=== PATIENT | female | born 1955 | race Caucasian/White ===

== ENCOUNTER 2020-12-30 20:49 | Inpatient (IN) | payer MEDICARE, OTHER, SELFPAY ==
[2020-12-30] VITALS (17 sets, daily range): BP systolic 148–169; BP diastolic 64–111; PULSE 112–131; RESP 22–35; TEMP 36.7; O2SAT 97–100
--- NOTE | ~2020-12-30 | CT_ITS ---
EXAMINATION: CTA chest PE protocol EXAM DATE: 12/30/2020 22:55 INDICATION: Shortness of breath, elevated dimer. TECHNIQUE: Spiral CTA of the chest (pulmonary arteries) was performed with 100 cc Omnipaque 350 intr avenous contrast injection. Images were acquired during the pulmonary arterial phase. Coronal maxi mum intensity projection 3D-reconstructions were created by the technologist on dedicated workstation . Axial, coronal and sagittal reformatted images were reviewed. The dose-length product (DLP) for t his examination was 596.99 mGy-cm. The exposure was tailored according to patient size (auto mA exp osure control), and iterative reconstruction (ASIR) was used as additional dose reduction technique. There is no prior study for comparison. FINDINGS: There are no pulmonary emboli in the 1st through 3rd order (central and interlobar) pulmon angel arteries. There is loss of attenuation in the segmental pulmonary arteries due to respiratory mot ion and suboptimal opacification, these vessels are not well evaluated. No thoracic aortic dissecti on. There are patchy bilateral groundglass opacities, could be infection or edema. Heart is normal i n size. There is small pericardial effusion. Small to moderate right and small left pleural effusions . Tracheobronchial tree is patent. There is no mediastinal, hilar or axillary lymphadenopathy. There is no pneumothorax. Cholecystectomy clips. There is thoracic spondylosis without osteobla stic or osteolytic lesions identified. Dense mitral annular calcifications. IMPRESSION: 1. No central pulmonary emboli. Can't confidently evaluate segmental pulmonary arteries. 2. Small to moderate right pleural effusion. Small pericardial and left pleural effusions. 3. Moderate amount of bilateral patchy infection or edema. Reviewed, dictated and finalized at location G. DOWN SPECIALIST IMPRESSION: 1. No central pulmonary emboli. Can't confidently evaluate segmental pulmonary arteries. 2. Small to moderate right pleural effusion. Small pericardial and left pleura l effusions. 3. Moderate amount of bilateral patchy infection or edema.
--- NOTE | ~2020-12-30 | XR_ITS ---
EXAMINATION: XR chest 1V portable EXAM DATE: 12/30/2020 21:17 INDICATION: Shortness of breath. Anxiety. TECHNIQUE: Portable AP frontal chest x-ray was obtained. Comparison is made to prior examination from 09/07/2018. FINDINGS: There is moderate amount of bilateral ill-defined airspace disease, recommend considering C OVID 19 pneumonia. Edema also possible. No pneumothorax or pleural effusion. Cardiomediastinal silhou ette is normal. Left humeral hardware. IMPRESSION: Moderate amount of bilateral ill-defined acute airspace disease, possibly COVID pneumoni a. Reviewed, dictated and finalized at location G. NCIAL SYSTEMS MANAGER IMPRESSION: Moderate amount of bilateral ill-defined acute airspace disease, p ossibly COVID pneumonia.
--- NOTE | ~2020-12-30 | US_ITS ---
EXAMINATION: US venous doppler E DATE: 12/31/2020 15:18 INDICATION: Left upper limb swelling TECHNIQUE: Grayscale images without and with compression and Doppler images of the bilateral upper ex tremity veins were obtained. COMPARISON: None. FINDINGS: The right internal jugular vein, subclavian vein, axillary vein, brachial vein, basilic vein, cephali c vein, radial vein, and ulnar vein are patent. The left internal jugular vein, subclavian vein, axillary vein, brachial vein, basilic vein, cephalic vein, radial vein, and ulnar vein are patent. IMPRESSION: 1. Patent bilateral upper extremity veins. No evidence of venous thrombosis. Reviewed, dictated and finalized at location A. 'S GOLF COACH
--- NOTE | 2020-12-30 20:58 | ECG_ITS ---
Measurements Intervals [place] Rate: 116 P: 70 W[place]: 135 QRS: 47 QRSD: 102 T: 43 QT: 321 QTc: 448 Interpretive Statements SINUS TACHYCARDIA POSSIBLE LEFT ATRIAL ENLARGEMENT INCOMPLETE RIGHT BUNDLE BRANCH BLOCK LOW QRS VOLTAGE IN PRECORDIAL LEADS BASELINE ARTIFACT- I, II, III, AVR, AVL, AVF, V1-V3 ABNORMAL ECG Electronically Signed On 12-31-2020 8:20:34 GRINDER SET UP OPERATOR by Ernesto Montgomery D.O.
--- NOTE | 2020-12-30 21:05 | PC.NURSE ---
Note pt's left hand/forearm more swollen than her right. Pt states she doesn't know how long this has been going on, but is concerned that she may have a blood clot or something . Pt has strong right radial pulse. Hand is normal in color and temperature.
[2020-12-30 21:12] LABS: Fractional Inspired Oxygen 100 %; HCO3 VBG 17.3 mEq/l (24.0-30.0); PO2 VBG 76.1 mmHg (35.0-45.0); pH VBG 7.379 (7.300-7.400)
[2020-12-30 21:14] LABS: Device NON-REBREATHER MASK; PCO2 VBG 29.9 mmHg (42.0-48.0)
[2020-12-30 21:18] LABS: Basophils Absolute Auto 0.1 K/mm3 (0.0-0.1); Basophils Percent Auto 0.7 % (0.2-1.2); Eosinophils Percent Auto 0.2 % (0-4.4); Hematocrit 27.8 % (37.0-47.0); Immature Granulocyte Absolute 0.07 K/mm3 (0.00-0.031); Immature Granulocyte Percent A 0.7 % (0-0.5); Lymphocytes Absolute Auto 1.24 K/mm3 (0.9-3.2); Lymphocytes Percent Auto 11.5 % (18.3-44.2); Mean Corpuscular HGB Conc 28.8 g/dl (32-36); Mean Corpuscular Hemoglobin 23.1 pg (26-34); Mean Corpuscular Volume 80.3 fl (80-100); Mean Platelet Volume 10.2 fl (7.4-10.4); Monocytes Absolute Auto 0.3 K/mm3 (0.1-0.6); Monocytes Percent Auto 3.1 % (2.6-8.5); Neutrophils Percent Auto 83.8 % (45.5-73.1); Platelet Count Result 421 k/mm3 (150-375); Red Blood Count 3.46 M/mm3 (4.2-5.4); Red Cell Distribution Width 20.5 % (11.5-14.5); White Blood Count 10.7 K/mm3 (4.5-10.0)
[2020-12-30 21:26] LABS: Hypochromasia 1+ (NORMAL); Platelet Estimate Increased (Adequate)
[2020-12-30 21:30] LABS: D Dimer 1.27 ug/mL (<0.48)
[2020-12-30 21:40] LABS: Anion Gap 10 mmol/L (8-16); Blood Urea Nitrogen 20 mg/dL (7-17); Calcium 9.5 mg/dL (8.4-10.2); Carbon Dioxide 19 mmol/L (22-30); Chloride 105 mmol/L (98-107); Estimated Glomerular Filt Rate 50; Glucose 125 mg/dL (65-105); Potassium 5.4 mmol/L (3.4-5.0); Sodium 134 mmol/L (137-145)
--- NOTE | 2020-12-30 21:40 | ED.SOB ---
HPI - SOB/Dyspnea General Chief Complaint: Shortness of Breath/Dyspnea Stated Complaint: respiratory distress Time Seen by Provider: 12/30/20 20:58 Source: patient and EMS Mode of arrival: EMS Limitations: clinical condition History of Present Illness HPI Narrative: 65-year-old female Arrives by BLS ambulance complaining of shortness of breath She is very anxious and not very cooperative on arrival Her O2 saturation on supplemental oxygen is fine, 98 to 100% though EMS reported 85% RA prehospital She is actually able to speak in complete sentences and explained that she does not want to wear BiPAP or be intubated Related Data Home Medications Medication Instructions Recorded Confirmed Spiriva Respimat 12/30/20 albuterol sulfate 12/30/20 cefuroxime axetil 12/30/20 diltiazem HCl PO 12/30/20 doxycycline hyclate 12/30/20 fluticasone furoate-vilanterol INHALATION 12/30/20 [Breo Ellipta] furosemide 12/30/20 gabapentin 12/30/20 hydralazine 12/30/20 levetiracetam PO 12/30/20 lorazepam 12/30/20 metoprolol tartrate 12/30/20 montelukast mg 12/30/20 pantoprazole PO 12/30/20 12/30/20 potassium chloride meq PO 12/30/20 prednisone 12/30/20 rosuvastatin mg 12/30/20 venlafaxine mg PO 12/30/20 warfarin 12/30/20 warfarin 12/30/20 12/30/20 Allergies Allergy/AdvReac Type Severity Reaction Status Date / Time No Known Allergies Allergy Verified 12/30/20 21:09 Review of Systems Review of Systems: ROS unobtainable: Yes unobtainable due to medical condition (too SOB) Constitutional: Constitutional: Denies fever(s) Cardiovascular: Cardiovascular: Reports as per HPI Respiratory: Respiratory: Reports as per HPI [facility] Past Medical History Medical History (Updated 12/30/20 @ 23:36 by Alfredo Corona MD) Breast cancer Surgical History Surgical History (Updated 12/30/20 @ 23:13 by Alfredo Corona MD) History of mastectomy Social History Social History Gender identity (if verbalized by the patient): Female Exam Const: General: well developed, alert and awake Nutritional Appearance: obese Orientation/consciousness: patient oriented x3 (alert) HENMT: Head: normocephalic and atraumatic Ears: external ears normal General nose exam: No nasal discharge present and no epistaxis Face and sinus: face symmetric Mouth: Yes moist mucous membranes Eyes: Conjunctivae: conjunctivae normal Sclera: sclerae normal EOM: EOMs intact bilaterally Neck: Neck: normal visual inspection, supple and no JVD Chest: Chest palpation & inspection: other (p/ mastectomy) Resp: Effort & Inspection: tachypneic Auscultation: no rales, no rhonchi, wheezes and other (BS =) Cardio: Rate: regular rate and tachycardic Rhythm: regular rhythm Heart sounds: no gallops GI: Inspection: normal to inspection Back/Spine/Pelvis: Thoracic/Lumbar Spine: thoracic and lumbar spine normal to inspection Skin: General skin exam: normal color and no rashes or lesions noted Neuro: General: patient oriented x3 (alert) and moves all extremities Cranial nerves: Yes facial symmetry Speech: normal speech Extrem: General: normal to inspection, full ROM and edema Psych: Affect: Anxious affect present and Irritable affect present Course Course Emergency Course: improved after initial neb and able to wean to nc o2 lab/cxr c/w possible kurt needed a little versed to tolerate ct, no pe, infiltrates present, again possibly kurt able to get most of her meds, does include coumadin 6/d, inr ok, lovenox held Vital Signs Vital signs: Vital Signs Pulse Rate 120 H 12/30/20 21:02 Respiratory Rate 34 H 12/30/20 21:02 Temperature 36.7 C 12/30/20 21:05 Pulse Rate 117 H 12/30/20 23:09 Respiratory Rate 25 H 12/30/20 23:09 Blood Pressure 148/82 H 12/30/20 23:09 Pulse Oximetry 100 12/30/20 23:09 MDM - SOB/Dyspnea Lab Data Result diagrams: 12/30/20 21:11 12/30/20 21:11
[2020-12-30 21:42] LABS: NT Pro B Type Natriuretic Pept 1490 PG/ML (5-100); Troponin I < 0.012 ng/mL (0.000-0.034)
--- NOTE | 2020-12-30 21:45 | PC.NURSE ---
Pt assisted to bedside commode. Note pt is incontent of stool.
--- NOTE | 2020-12-30 22:00 | PC.NURSE ---
Note pt has audible wheezes again after using commode. Pt helped with cleansing self of stool and assisted back to bed. spo2 99-100% on 6L/NC. Dr. Corona made aware of patient becoming more short of breath with exertion.
[2020-12-30] MEDS: IPRATROPIUM BR 0.02% INH SOLN 0.5 MG/2.5 ML VIAL INHALATION (22:22)
[2020-12-30] MEDS: ALBUTEROL SULFATE NEB 2.5 MG/0.5 ML INH 5 MG INHALATION (22:22)
--- NOTE | 2020-12-30 22:36 | PC.NURSE ---
Pt to CT via stretcher.
[2020-12-30] MEDS: MIDAZOLAM HCL (*CRX) 2 MG/2 ML VIAL 1 MG IV PUSH (22:50)
--- NOTE | 2020-12-30 22:55 | PC.NURSE ---
Pt given versed IVP for being too claustrophobic to lie flat for CT.
--- NOTE | 2020-12-30 23:12 | PC.NURSE ---
Covid swab obtained. Explaining lovonox, pt states that she takes warfarin 6mg daily for preventative since having cancer. States is to have INR checked tomorrow. Dr. Coorna aware, holding medication at this time.
[2020-12-30 23:23] LABS: Prothrombin Time 23.2 Seconds (11.1-14.7)
[2020-12-31] VITALS (33 sets, daily range): BP systolic 100–145; BP diastolic 52–88; PULSE 100–127; RESP 19–33; TEMP 35.8–37.3; O2SAT 99–100; BMI 42.0
--- NOTE | 2020-12-31 00:05 | PC.NURSE ---
Pt states now that she's coughing a little now , note that the patient has a tight sounding cough. States I just don't feel that much better . Note sp02 100%. Pt currently on 3L/NC. States I just don't feel like I'm getting a deep breath .
--- NOTE | 2020-12-31 00:42 | PC.NURSE ---
Pt given ice chips po. Updated on delay in receiving room as Dr. Zaragoza has refused to accept the patient. Awaiting return call from Dr. Silva.
--- NOTE | 2020-12-31 01:25 | ADMGEN ---
This patient, Haritha Velez, was admitted to [facility] Surg Room 314-01. Patient/family oriented to hospital policies and general routines including ID bracelet, bed and alarms, visiting hours, pain management, procedures, bathroom and other care routines, personal items, smoking policy, room service/diet, and visiting hours. Information on how to activate the Rapid Response Team has been discussed. Patient/Family are encouraged to report perceived risks to care and to ask questions if they do not understand what they are told or what they should do.
[2020-12-31 02:59] LABS: Anion Gap 7 mmol/L (8-16); Blood Urea Nitrogen 21 mg/dL (7-17); Calcium 9.5 mg/dL (8.4-10.2); Carbon Dioxide 21 mmol/L (22-30); Chloride 106 mmol/L (98-107); Estimated Glomerular Filt Rate 50; Glucose 150 mg/dL (65-105); Potassium 6.2 mmol/L (3.4-5.0); Sodium 134 mmol/L (137-145)
[2020-12-31] MEDS: ALBUTEROL SULFATE NEB 2.5 MG/0.5 ML INH 10 MG INHALATION (03:31)
[2020-12-31] MEDS: CALCIUM GLUC 1,000 MG/NS 50 ML 1,000 MG/50 ML BAG 100 MG IVPB (04:10)
[2020-12-31] MEDS: SODIUM BICARBONATE 8.4% 50 MEQ/50 ML VIAL IV PUSH (04:12)
[2020-12-31] MEDS: INSULIN HUMAN REGULAR (*BKC) 100 UNITS/ML 10 UNITS IV PUSH (05:06)
[2020-12-31] MEDS: DEXTROSE 50% 25 GM/50 ML SYRINGE IV PUSH (05:06)
--- NOTE | 2020-12-31 05:14 | PC.NURSE ---
This patient, Haritha Velez, was received from [[id number] ] on 12/31/20 at 0445. Patient/family oriented to unit policies and routines
--- NOTE | 2020-12-31 05:16 | PC.NURSE ---
This patient, Haritha Velez, was transferred to [[facility]U ] on 12/31/20 at 0450. Personal belongings sent with patient. Report given to [Norma]. Appropriate documentation sent with patient.
[2020-12-31] MEDS: ALBUTEROL SULFATE NEB 2.5 MG/0.5 ML INH 5 MG INHALATION (05:49)
[2020-12-31] MEDS: LORazepam INJ (*CRX) 2 MG/ML VIAL 0.5 MG IV PUSH (06:01)
[2020-12-31 06:43] LABS: Anion Gap 10 mmol/L (8-16); Blood Urea Nitrogen 22 mg/dL (7-17); Calcium 9.8 mg/dL (8.4-10.2); Carbon Dioxide 22 mmol/L (22-30); Chloride 106 mmol/L (98-107); Estimated Glomerular Filt Rate 50; Glucose 154 mg/dL (65-105); Potassium 4.9 mmol/L (3.4-5.0); Sodium 138 mmol/L (137-145)
--- NOTE | 2020-12-31 08:21 | PM.IMHP ---
H&P: HPI History of Present Illness Date/Time: 12/31/20 08:21 Chief Complaint: SOB. Narrative: Haritha Velez is a 65 year old female with PMHx significant for HTN, COPD, Asthma, A. fib on anticoagulation, T2DM. Patient presented to ED due to worsening sob, productive cough, for the last week or so, denies smoking, also states that had pain in her epigastrium but no nausea or vomiting, no fevers, no rigors, no chills, no loss of sense of smell or taste, no loss of appetite, no leg swelling. Preliminary work up was significant for lung infiltrates on both lungs. Review of Systems Review of Systems: Narrative: Patient presented to ED due to worsening sob and epigastric abdominal pain. Constitutional: Comments: no fevers, no rigors, no chills. ENT: Comments: no nasal congestion. Cardiovascular: Comments: no chest pain, no leg swelling. Respiratory: Comments: sob, productive cough. Gastrointestinal: Comments: epigastric discomfort, no n/v Musculoskeletal: Comments: no joint pain. Integumentary/Breasts: Comments: no rashes. Neurologic: Comments: no sensory motor deficit. [facility] Past Medical History Medical History (Updated 12/31/20 @ 12:44 by An Gray MD) Breast cancer Surgical History Surgical History (Updated 12/30/20 @ 23:13 by Alfredo Corona MD) History of mastectomy Social History Social History Smoking status: Never smoker Alcohol intake: never Substance use: never Gender identity (if verbalized by the patient): Female Spiritual care concerns: No Meds Home Medications and Allergies Home Medications Medication Instructions Recorded Confirmed Type albuterol sulfate 2 puff INHALATION TID 12/30/20 12/31/20 History diltiazem HCl 240 mg PO DAILY 12/30/20 12/31/20 History fluticasone furoate-vilanterol 2 inh INHALATION DAILY 12/30/20 12/31/20 History [Breo Ellipta] furosemide 80 mg PO DAILY 12/30/20 12/31/20 History gabapentin 600 mg PO TID 12/30/20 12/31/20 History hydralazine 25 mg PO BID 12/30/20 12/31/20 History levetiracetam 250 mg PO BID 12/30/20 12/31/20 History lorazepam 0.5 mg PO Q6H PRN 12/30/20 12/31/20 History metoprolol tartrate 12.5 mg PO BID 12/30/20 12/31/20 History montelukast 10 mg PO HS 12/30/20 12/31/20 History pantoprazole 40 mg PO BIDAC 12/30/20 12/31/20 History potassium chloride 40 meq PO BID 12/30/20 12/31/20 History rosuvastatin 5 mg PO HS 12/30/20 12/31/20 History venlafaxine 150 mg PO DAILY 12/30/20 12/31/20 History warfarin 7.5 mg PO DAILY 12/30/20 12/31/20 History Allergies Allergy/AdvReac Type Severity Reaction Status Date / Time No Known Allergies Allergy Verified 12/30/20 21:09 Vital Signs Vital Signs - 24 hr 12/30/20 21:02 12/30/20 21:05 12/30/20 21:13 Temperature 98.1 F Pulse Rate 120 H 125 H 117 H Respiratory Rate 34 H 33 H 30 H Blood Pressure 169/111 H Pulse Oximetry 100 12/30/20 21:17 12/30/20 21:25 12/30/20 21:27 Temperature Pulse Rate 114 H 124 H Respiratory Rate 24 H Blood Pressure 162/74 H Pulse Oximetry 100 97 12/30/20 21:55 12/30/20 22:11 12/30/20 22:15 Temperature Pulse Rate 114 H 115 H 113 H Respiratory Rate 25 H 30 H 35 H Blood Pressure 150/64 H Pulse Oximetry 100 100 100 12/30/20 22:17 12/30/20 22:22 12/30/20 22:31 Temperature Pulse Rate 112 H 112 H 118 H Respiratory Rate 22 H 26 H 29 H Blood Pressure 156/70 H Pulse Oximetry 100 12/30/20 22:58 12/30/20 23:00 12/30/20 23:09 Temperature Pulse Rate 131 H 119 H 117 H Respiratory Rate 31 H 32 H 25 H Blood Pressure 148/82 H Pulse Oximetry 99 100 12/30/20 23:32 12/30/20 23:48 12/31/20 00:00 Temperature Pulse Rate 117 H 115 H 116 H Respiratory Rate 28 H 27 H 30 H Blood Pressure 163/67 H Pulse Oximetry 100 100 100 12/31/20 00:02 12/31/20 00:03 12/31/20 00:41 Temperature Pulse Rate 116 H 115 H 112 H Respiratory Rate 19 33 H 26 H Blood Pressure 137/88 Pulse Oximetry 100 100 100 0
[2020-12-31] MEDS: LEVALBUTEROL HFA (*SP) 15 GM INHALER 2 PUFF INHALATION ×2 (09:07→12:54)
[2020-12-31] MEDS: GABAPENTIN 300 MG CAPSULE 600 MG PO ×3 (09:29→16:36)
[2020-12-31] MEDS: PANTOPRAZOLE 40 MG TABLET PO ×2 (09:30→16:38)
[2020-12-31] MEDS: METOPROLOL TARTRATE 12.5 MG TABLET PO ×2 (09:30→20:19)
[2020-12-31] MEDS: hydrALAZINE HCL 25 MG TABLET PO ×2 (09:30→16:36)
[2020-12-31] MEDS: levETIRAcetam 250 MG TABLET PO ×2 (09:31→16:38)
[2020-12-31] MEDS: VENLAFAXINE HCL XR 75 MG CAP.ER.24H 150 MG PO (09:31)
[2020-12-31] MEDS: DEXAMETHASONE SOD PHOS INJ 4 MG/ML VIAL 6 MG IV PUSH (09:32)
[2020-12-31] MEDS: LEVALBUTEROL NEB 1.25 MG/3 ML 0.63 MG INHALATION ×2 (13:48→20:04)
[2020-12-31 13:56] LABS: SARS-CoV-2 RNA PCR Negative
--- NOTE | 2020-12-31 15:48 | PC.NURSE ---
This patient, Haritha Velez, was transferred to [[facility] ] on 12/31/20 at 1540. Personal belongings sent with patient. Report given to [Coreen ]. Appropriate documentation sent with patient.
--- NOTE | 2020-12-31 16:12 | ADMGEN ---
This patient, Haritha Velez, was admitted to [facility]. Patient/family oriented to hospital policies and general routines including ID bracelet, bed and alarms, visiting hours, pain management, procedures, bathroom and other care routines, personal items, smoking policy, room service/diet, and visiting hours. Information on how to activate the Rapid Response Team has been discussed. Patient/Family are encouraged to report perceived risks to care and to ask questions if they do not understand what they are told or what they should do.
[2020-12-31] MEDS: WARFARIN (*PBKC) 7.5 MG TABLET PO (16:37)
[2020-12-31] MEDS: LORazepam (*CRX) 0.5 MG TABLET PO ×2 (16:46→23:14)
[2020-12-31] MEDS: MONTELUKAST SODIUM 10 MG TABLET PO (20:19)
[2020-12-31] MEDS: racEPINEPHrine 2.25% NEBU SOLN 0.5 ML VIAL.NEB INHALATION (21:42)
[2021-01-01] VITALS (30 sets, daily range): BP systolic 117–184; BP diastolic 68–99; PULSE 98–123; RESP 20–28; TEMP 36.2–36.7; O2SAT 94–100
[2021-01-01] MEDS: LEVALBUTEROL NEB 1.25 MG/3 ML 0.63 MG INHALATION ×4 (02:07→21:11)
--- NOTE | 2021-01-01 02:36 | PM.EVENT ---
Event Note Event Note Event Note: Called to see this 65-year-old obese female who is being treated for acute COPD exacerbation and pneumonia secondary to respiratory distress. On my arrival to bedside the patient appears to be in [place] respiratory distress with a respiratory rate in the mid 30s. On auscultation the patient is very wheezy and tight. She verbalized to me that she does not want to be intubated or placed on mechanical ventilation and also does not want to be initiated on BiPAP. I have ordered an hour long albuterol respiratory treatment and verbalized to the patient that she is in [place]on respiratory failure and she may diet if she does not go on a BiPAP. Patient has verbalized her understanding of same and still does not want to be initiated on BiPAP. At this time we will move the patient to the IMU for closer observation. I will also check an ABG and CBCD as the patient was significantly anemic yesterday and very well may need a blood transfusion at this time.
[2021-01-01 02:47] LABS: Alveolar/Arterial O2 Gradient 91.7 mmHg; Base Excess ABG -2.3 mEq/l (+/-2.0); Fractional Inspired Oxygen 32 %; HCO3 ABG 22.4 mEq/l (22.0-26.0); Oxygen Content ABG 10.9 %vol (16.0-22.0); Oxygen Saturation ABG 97.1 % (95.0-100.0); Oxyhemoglobin 95.4 % THb (90.0-100.0); PCO2 ABG 37.7 mmHg (35.0-45.0); PO2 ABG 92.4 mmHg (80.0-100.0); PO2 FiO2 Ratio Arterial Blood 2.89 %; pH ABG 7.392 (7.350-7.450)
[2021-01-01 02:49] LABS: Site Drawn LEFT RADIAL
[2021-01-01 02:50] LABS: Device NASAL CANNULA; Modified Allen's Test Pass
--- NOTE | 2021-01-01 03:30 | ADMIMU ---
This patient, Haritha Velez, was transfered to IMU status, and placed in Intensive Care Unit-10. Patient/family oriented to hospital policies and general routines including ID bracelet, bed and alarms, visiting hours, pain management, procedures, bathroom and other care routines, personal items, smoking policy, room service/diet, and visiting hours. Valuables list has been completed. Information on how to activate the Rapid Response Team has been discussed. Patient/Family are encouraged to report perceived risks to care and to ask questions if they do not understand what they are told or what they should do. Pt stood up and trnsfered to icu bed placed on monitor and oxygen at 3l by nasal canula. Pt has audible expiratory wheezes respiratory therapy notified of her arrival for neb treatment
[2021-01-01 03:31] LABS: Basophils Percent Auto 0.1 % (0.2-1.2); Hematocrit 23.6 % (37.0-47.0); Immature Granulocyte Absolute 0.09 K/mm3 (0.00-0.031); Immature Granulocyte Percent A 0.7 % (0-0.5); Lymphocytes Absolute Auto 0.56 K/mm3 (0.9-3.2); Lymphocytes Percent Auto 4.5 % (18.3-44.2); Mean Corpuscular HGB Conc 28.8 g/dl (32-36); Mean Corpuscular Hemoglobin 23.4 pg (26-34); Mean Corpuscular Volume 81.4 fl (80-100); Mean Platelet Volume 10.1 fl (7.4-10.4); Monocytes Absolute Auto 0.9 K/mm3 (0.1-0.6); Monocytes Percent Auto 7.2 % (2.6-8.5); Neutrophils Percent Auto 87.5 % (45.5-73.1); Platelet Count Result 334 k/mm3 (150-375); Red Cell Distribution Width 20.4 % (11.5-14.5); White Blood Count 12.6 K/mm3 (4.5-10.0)
[2021-01-01 03:43] LABS: Hemoglobin 6.8 g/dL (12.0-15.0); Platelet Estimate Adequate (Adequate)
[2021-01-01 03:44] LABS: Anisocytosis 1+ (NORMAL); Hypochromasia 2+ (NORMAL)
[2021-01-01 03:45] LABS: INR 2.6; Prothrombin Time 28.3 Seconds (11.1-14.7)
[2021-01-01] MEDS: hydrALAZINE HCL 25 MG TABLET PO ×2 (04:47→17:19)
[2021-01-01] MEDS: METOPROLOL TARTRATE 12.5 MG TABLET PO ×2 (04:47→19:47)
[2021-01-01] MEDS: LORazepam (*CRX) 0.5 MG TABLET PO ×3 (05:07→19:47)
[2021-01-01] MEDS: PANTOPRAZOLE 40 MG TABLET PO ×2 (08:49→17:19)
[2021-01-01] MEDS: VENLAFAXINE HCL XR 75 MG CAP.ER.24H 150 MG PO (08:50)
[2021-01-01] MEDS: levETIRAcetam 250 MG TABLET PO ×2 (08:50→17:22)
[2021-01-01] MEDS: GABAPENTIN 300 MG CAPSULE 600 MG PO ×3 (08:50→17:19)
[2021-01-01] MEDS: DEXAMETHASONE SOD PHOS INJ 4 MG/ML VIAL 6 MG IV PUSH (08:50)
[2021-01-01] MEDS: SODIUM CHLORIDE 0.9% IV 250 ML 30 ML IV CONT (14:56)
[2021-01-01 15:51] LABS: Hemoglobin 8.2 g/dL (12.0-15.0)
--- NOTE | 2021-01-01 15:56 | PC.NURSE ---
PATIENT BEING TRANSFERRED TO [facility]. REPORT GIVEN TO RN. ALL QUESTIONS ANSWERED.
--- NOTE | 2021-01-01 16:15 | PC.NURSE ---
This patient, Haritha Velez, was received from ICU on 01/01/21 at 1615.Report received from Virgen LAZAR. . Patient/family oriented to unit policies and routines
[2021-01-01] MEDS: WARFARIN (*PBKC) 7.5 MG TABLET PO (17:41)
--- NOTE | 2021-01-01 18:53 | PM.IMPN ---
Progress Note: A&P Assessment and Plan (1) Acute exacerbation of chronic obstructive airways disease: Code(s): J44.1 - Chronic obstructive pulmonary disease with (acute) exacerbation Status: Acute Assessment and Plan: Overnight events noted Patient with respiratory distress now improved Continue breathing treatments Continuous pulse ox (2) Community acquired pneumonia: Code(s): J18.9 - Pneumonia, unspecified organism Status: Acute Assessment and Plan: Continue Rocephin and Zithromax (3) HTN (hypertension): Code(s): I10 - Essential (primary) hypertension Status: Acute Assessment and Plan: Stable Continue home meds Continue to monitor (4) A-fib: Code(s): I48.91 - Unspecified atrial fibrillation Status: Acute Assessment and Plan: Rate controlled Anticoagulated Subjective Date/time seen: 01/01/21 18:53 Patient states that she feels well and wants to go home Review of Systems Review of Systems: Narrative: sob Constitutional: Comments: no fevers, no chills, no rigors Cardiovascular: Comments: no chest pain, no pnd, no orthopnea, no leg swelling. Respiratory: Comments: sob, dry cough. Gastrointestinal: Comments: no n/v/abdominal pain. Musculoskeletal: Comments: no joint pain. Integumentary/Breasts: Comments: no rashes. Neurologic: Comments: no sensory motor deficit. Exam Narrative: Exam Narrative: Sitting in bed. Const: General: no acute distress, alert, awake and Physically active Nutritional Appearance: overweight Orientation/consciousness: patient oriented x3 HENMT: Head: normal to inspection and normocephalic Ears: hearing grossly normal bilaterally General nose exam: Normal external nose present Face and sinus: normal facial exam Eyes: General: appearance normal, both eyes and all related structures Pupils: Equal, round and reactive pupils present EOM: EOMs intact bilaterally Neck: Neck: no lymphadenopathy, supple and no JVD Resp: Auscultation: wheezes Cardio: Rate: regular rate Rhythm: regular rhythm GI: Inspection: normal to inspection Skin: General skin exam: normal color Rashes: no rashes Neuro: General: patient oriented x3 and CN's II-XI intact bilaterally Cranial nerves: Yes CN's II-XII intact bilaterally and Yes Equal, round and reactive pupils present Cognition (Neuro): normal cognition Speech: normal speech Gait exam (Neuro): Normal gait present Motor exam (neuro): 5/5 motor strength present throughout Extrem: General: no pedal edema Objective Data Vital Signs Vital Signs: Vital Signs - 24 hr 12/31/20 20:00 12/31/20 20:04 12/31/20 20:17 Temperature 99.2 F Pulse Rate 118 H 116 H 115 H Respiratory Rate 23 H 25 H 20 Blood Pressure 128/66 Pulse Oximetry 100 100 Pulse Oximetry [With Activity During Therapy Session] 12/31/20 20:19 12/31/20 21:44 12/31/20 21:53 Temperature Pulse Rate 116 H 109 H 109 H Respiratory Rate 21 H 21 H Blood Pressure Pulse Oximetry Pulse Oximetry [With Activity During Therapy Session] 12/31/20 23:21 01/01/21 00:00 01/01/21 02:07 Temperature 98.4 F Pulse Rate 112 H 112 H 123 H Respiratory Rate 24 H 28 H Blood Pressure 125/52 L Pulse Oximetry 99 Pulse Oximetry [With Activity During Therapy Session] 01/01/21 02:15 01/01/21 02:19 01/01/21 02:45 Temperature Pulse Rate 117 H 116 H Respiratory Rate 24 H 28 H Blood Pressure 137/69 Pulse Oximetry 95 95 Pulse Oximetry [With Activity During Therapy Session] 01/01/21 03:33 01/01/21 03:34 01/01/21 04:00 Temperature Pulse Rate 109 H 107 H 107 H Respiratory Rate 25 H 25 H 25 H Blood Pressure Pulse Oximetry 100 100 Pulse Oximetry [With Activity During Therapy Session] 01/01/21 04:35 01/01/21 04:47 01/01/21 06:00 Temperature 97.9 F Pulse Rate 115 H 115 H 107 H Respiratory Rate 24 H 25 H Blood Pressure 135/71 Pulse Oximetry 99 Pu
[2021-01-01] MEDS: MONTELUKAST SODIUM 10 MG TABLET PO (19:49)
[2021-01-02] VITALS (13 sets, daily range): BP systolic 128–140; BP diastolic 65–90; PULSE 83–100; RESP 16–24; TEMP 36.1–36.5; O2SAT 96–100
[2021-01-02] MEDS: LEVALBUTEROL NEB 1.25 MG/3 ML 0.63 MG INHALATION ×4 (03:03→19:45)
[2021-01-02] MEDS: PANTOPRAZOLE 40 MG TABLET PO ×2 (05:52→17:49)
[2021-01-02 06:34] LABS: INR 3.2; Prothrombin Time 33.4 Seconds (11.1-14.7)
[2021-01-02] MEDS: DEXAMETHASONE SOD PHOS INJ 4 MG/ML VIAL 6 MG IV PUSH (08:55)
[2021-01-02] MEDS: METOPROLOL TARTRATE 12.5 MG TABLET PO ×2 (08:58→20:54)
[2021-01-02] MEDS: GABAPENTIN 300 MG CAPSULE 600 MG PO ×3 (08:59→17:54)
[2021-01-02] MEDS: VENLAFAXINE HCL XR 75 MG CAP.ER.24H 150 MG PO (08:59)
[2021-01-02] MEDS: hydrALAZINE HCL 25 MG TABLET PO ×2 (08:59→17:54)
[2021-01-02] MEDS: levETIRAcetam 250 MG TABLET PO ×2 (08:59→17:54)
--- NOTE | 2021-01-02 18:07 | PM.IMPN ---
Progress Note: A&P Assessment and Plan (1) Acute exacerbation of chronic obstructive airways disease: Code(s): J44.1 - Chronic obstructive pulmonary disease with (acute) exacerbation Status: Acute Assessment and Plan: Improved Continue breathing treatments Continue to monitor (2) Community acquired pneumonia: Code(s): J18.9 - Pneumonia, unspecified organism Status: Acute Assessment and Plan: Continue Rocephin and Doxycycline Improved (3) HTN (hypertension): Code(s): I10 - Essential (primary) hypertension Status: Acute Assessment and Plan: Stable Continue home meds (4) A-fib: Code(s): I48.91 - Unspecified atrial fibrillation Status: Acute Assessment and Plan: Rate control Anticoagulated. Subjective Date/time seen: 01/02/21 18:07 Patient states that she feels much better. Review of Systems Review of Systems: Narrative: States that her sob is much better today. Constitutional: Comments: no fevers, no rigors, no chills, feels tired and fatigued. Cardiovascular: Comments: no chest pain, no pnd, no orthopnea Respiratory: Comments: sob, dry cough. Gastrointestinal: Comments: no n/v/abdominal pain. Musculoskeletal: Comments: no joint pain. Integumentary/Breasts: Comments: no rashes. Neurologic: Comments: no sensory motor deficit. Exam Narrative: Exam Narrative: Patient is sitting in chair. Const: General: cooperative, no acute distress, alert, awake and Physically active Nutritional Appearance: overweight HENMT: Head: normocephalic Ears: hearing grossly normal bilaterally General nose exam: Normal external nose present Face and sinus: normal facial exam Eyes: General: appearance normal, both eyes and all related structures Pupils: Equal, round and reactive pupils present EOM: EOMs intact bilaterally Neck: Neck: no lymphadenopathy, supple and no JVD Lymphatic: no lymphadenopathy noted Resp: Auscultation: wheezes and diminished lung sounds Cardio: Rate: regular rate Rhythm: regular rhythm GI: GI Palp: Yes Soft to palpation and Yes No hepatosplenomegaly present Skin: Rashes: no rashes Neuro: General: patient oriented x3 and CN's II-XI intact bilaterally Cranial nerves: Yes CN's II-XII intact bilaterally and Yes Equal, round and reactive pupils present Cognition (Neuro): normal cognition Speech: normal speech Motor exam (neuro): 5/5 motor strength present throughout Extrem: General: no pedal edema Objective Data Vital Signs Vital Signs: Vital Signs - 24 hr 01/01/21 19:47 01/01/21 20:00 01/01/21 21:15 Temperature Pulse Rate 102 H 101 H Respiratory Rate 22 H Blood Pressure Pulse Oximetry 96 94 01/01/21 21:27 01/01/21 22:00 01/02/21 03:05 Temperature 97.4 F L Pulse Rate 99 102 H 93 Respiratory Rate 22 H 20 20 Blood Pressure 153/68 H Pulse Oximetry 99 01/02/21 06:00 01/02/21 08:47 01/02/21 08:50 Temperature 97.7 F Pulse Rate 99 88 Respiratory Rate 20 20 Blood Pressure 128/69 Pulse Oximetry 100 98 01/02/21 08:58 01/02/21 09:08 01/02/21 14:00 Temperature 97.0 F L Pulse Rate 88 92 93 Respiratory Rate 20 24 H Blood Pressure 132/65 Pulse Oximetry 100 01/02/21 14:35 01/02/21 14:45 Temperature Pulse Rate 85 83 Respiratory Rate 20 20 Blood Pressure Pulse Oximetry Intake/Output Intake/Output: Intake & Output 12/30/20 12/31/20 01/01/21 01/02/21 23:59 23:59 23:59 23:59 Intake Total 50 990 1460 730 Output Total 700 2500 900 Balance 50 290 -1040 -170 Meds/Results Medications: Active Medications Generic Name Dose Route Start Last Admin Trade Name Freq PRN Reason Stop Dose Admin Acetaminophen 650 mg 12/30/20 23:36 Acetaminophen 325 Mg Tablet PO Q4H PRN Mild Pain (1-3) or Fever Budesonide/Formoterol Fumarate 2 puff 12/31/20 08:00 01/02/21 08:52 Budesonide/Form 160-4.5 Mcg (*Sp) INHALATION 2 puff Q12HRT SEVERINO
[2021-01-02] MEDS: MONTELUKAST SODIUM 10 MG TABLET PO (20:55)
[2021-01-02] MEDS: LORazepam (*CRX) 0.5 MG TABLET PO (23:19)
[2021-01-03] VITALS (15 sets, daily range): BP systolic 135–148; BP diastolic 72–81; PULSE 84–101; RESP 18–22; TEMP 36.2–36.9; O2SAT 97–100
[2021-01-03] MEDS: LEVALBUTEROL NEB 1.25 MG/3 ML 0.63 MG INHALATION ×4 (01:54→22:05)
[2021-01-03] MEDS: PANTOPRAZOLE 40 MG TABLET PO ×2 (06:19→17:39)
[2021-01-03 07:00] LABS: INR 3.1; Prothrombin Time 32.3 Seconds (11.1-14.7)
[2021-01-03] MEDS: DEXAMETHASONE SOD PHOS INJ 4 MG/ML VIAL 6 MG IV PUSH (09:25)
[2021-01-03] MEDS: hydrALAZINE HCL 25 MG TABLET PO ×2 (09:26→17:39)
[2021-01-03] MEDS: GABAPENTIN 300 MG CAPSULE 600 MG PO ×3 (09:26→17:39)
[2021-01-03] MEDS: levETIRAcetam 250 MG TABLET PO ×2 (09:26→17:39)
[2021-01-03] MEDS: VENLAFAXINE HCL XR 75 MG CAP.ER.24H 150 MG PO (09:27)
[2021-01-03] MEDS: METOPROLOL TARTRATE 12.5 MG TABLET PO ×2 (09:27→21:06)
--- NOTE | 2021-01-03 16:48 | PM.IMPN ---
Progress Note: A&P Assessment and Plan (1) Acute exacerbation of chronic obstructive airways disease: Code(s): J44.1 - Chronic obstructive pulmonary disease with (acute) exacerbation Status: Acute Assessment and Plan: Improved but still having some wheezing Solumedrol 125 mg iv once Will send on long Prednisone taper going home Lasix 40 mg iv as balance is positive (2) Community acquired pneumonia: Code(s): J18.9 - Pneumonia, unspecified organism Status: Acute Assessment and Plan: On Rocephin and Zithromax (3) HTN (hypertension): Code(s): I10 - Essential (primary) hypertension Status: Acute Assessment and Plan: Stable Continue home meds Continue to monitor (4) A-fib: Code(s): I48.91 - Unspecified atrial fibrillation Status: Acute Assessment and Plan: Rate controlled Anticoagulated On Coumadin Subjective Date/time seen: 01/03/21 16:48 Feels tired but better. Review of Systems Review of Systems: Narrative: No new issues overnight Constitutional: Comments: no fevers, no chills. Cardiovascular: Comments: no chest pain. Respiratory: Comments: sob, wheezing. Gastrointestinal: Comments: no n/v/abdominal pain. Musculoskeletal: Comments: no joint pain. Integumentary/Breasts: Comments: no rashes Neurologic: Comments: no focal sensory motor deficit. Exam Narrative: Exam Narrative: Sitting in chair Const: General: cooperative, comfortable, no acute distress, alert, awake and Physically active Nutritional Appearance: overweight Orientation/consciousness: patient oriented x3 HENMT: Head: normocephalic Ears: hearing grossly normal bilaterally General nose exam: Normal external nose present Face and sinus: normal facial exam Eyes: General: appearance normal, both eyes and all related structures Pupils: Equal, round and reactive pupils present EOM: EOMs intact bilaterally Neck: Neck: no lymphadenopathy, supple and no JVD Resp: Effort & Inspection: able to speak in complete sentences Auscultation: wheezes Cardio: Rate: regular rate Rhythm: regular rhythm GI: GI Palp: Yes Soft to palpation and Yes No hepatosplenomegaly present Skin: Rashes: no rashes Neuro: General: patient oriented x3 and CN's II-XI intact bilaterally Cranial nerves: Yes CN's II-XII intact bilaterally and Yes Equal, round and reactive pupils present Cognition (Neuro): normal cognition Speech: normal speech Motor exam (neuro): 5/5 motor strength present throughout Extrem: General: no pedal edema Objective Data Vital Signs Vital Signs: Vital Signs - 24 hr 01/02/21 20:00 01/02/21 20:49 01/02/21 20:54 Temperature Pulse Rate 88 84 94 Respiratory Rate 20 20 Blood Pressure Pulse Oximetry 98 96 01/02/21 22:00 01/03/21 01:56 01/03/21 06:00 Temperature 97.6 F 98.4 F Pulse Rate 100 84 91 Respiratory Rate 16 20 20 Blood Pressure 140/90 135/81 Pulse Oximetry 100 100 01/03/21 08:00 01/03/21 08:39 01/03/21 08:46 Temperature Pulse Rate 94 95 Respiratory Rate 20 20 Blood Pressure Pulse Oximetry 100 100 01/03/21 08:57 01/03/21 09:27 01/03/21 14:00 Temperature 97.7 F Pulse Rate 98 93 Respiratory Rate 22 H Blood Pressure 146/72 H Pulse Oximetry 97 100 01/03/21 15:08 01/03/21 15:16 Temperature Pulse Rate 96 95 Respiratory Rate 20 20 Blood Pressure Pulse Oximetry Intake/Output Intake/Output: Intake & Output 12/31/20 01/01/21 01/02/21 01/03/21 23:59 23:59 23:59 23:59 Intake Total 990 1460 1760 780 Output Total 700 2500 1200 600 Balance 290 -1040 560 180 Meds/Results Medications: Active Medications Generic Name Dose Route Start Last Admin Trade Name Freq PRN Reason Stop Dose Admin Acetaminophen 650 mg 12/30/20 23:36 Acetaminophen 325 Mg Tablet PO Q4H PRN Mild Pain (1-3) or Fever Budesonide/Formoterol Fumarate 2 puff 12/31/20 08:00 01/03/21 08:38 Budeson
[2021-01-03] MEDS: methylPREDNISolone SOD SUCC 125 MG VIAL IV PUSH (17:39)
[2021-01-03] MEDS: FUROSEMIDE INJ 40 MG/4 ML VIAL IV PUSH (17:39)
[2021-01-03] MEDS: MONTELUKAST SODIUM 10 MG TABLET PO (21:06)
[2021-01-03] MEDS: traMADol HCL (*CRX) 50 MG TABLET PO (22:20)
[2021-01-03] MEDS: LORazepam (*CRX) 0.5 MG TABLET PO (22:20)
[2021-01-04] VITALS (9 sets, daily range): BP systolic 129; BP diastolic 68; PULSE 84–102; RESP 18–20; TEMP 36.6; O2SAT 93–94
[2021-01-04] MEDS: LEVALBUTEROL HFA (*SP) 15 GM INHALER 2 PUFF INHALATION (01:08)
[2021-01-04] MEDS: LEVALBUTEROL NEB 1.25 MG/3 ML 0.63 MG INHALATION ×3 (03:20→13:33)
[2021-01-04] MEDS: PANTOPRAZOLE 40 MG TABLET PO (06:20)
[2021-01-04 06:42] LABS: INR 2.4; Prothrombin Time 27.1 Seconds (11.1-14.7)
[2021-01-04] MEDS: DEXAMETHASONE SOD PHOS INJ 4 MG/ML VIAL 6 MG IV PUSH (08:52)
[2021-01-04] MEDS: GABAPENTIN 300 MG CAPSULE 600 MG PO ×2 (08:53→12:38)
[2021-01-04] MEDS: hydrALAZINE HCL 25 MG TABLET PO (08:53)
[2021-01-04] MEDS: levETIRAcetam 250 MG TABLET PO (08:54)
[2021-01-04] MEDS: VENLAFAXINE HCL XR 75 MG CAP.ER.24H 150 MG PO (08:54)
[2021-01-04] MEDS: METOPROLOL TARTRATE 12.5 MG TABLET PO (08:54)
[2021-01-04 08:56] LABS: Hematocrit 25.8 % (37.0-47.0); Hemoglobin 7.9 g/dL (12.0-15.0); Immature Granulocyte Absolute 0.06 K/mm3 (0.00-0.031); Immature Granulocyte Percent A 1.3 % (0-0.5); Lymphocytes Absolute Auto 0.45 K/mm3 (0.9-3.2); Lymphocytes Percent Auto 9.8 % (18.3-44.2); Mean Corpuscular HGB Conc 30.6 g/dl (32-36); Mean Corpuscular Hemoglobin 24.6 pg (26-34); Mean Corpuscular Volume 80.4 fl (80-100); Mean Platelet Volume 10.1 fl (7.4-10.4); Monocytes Absolute Auto 0.3 K/mm3 (0.1-0.6); Monocytes Percent Auto 5.9 % (2.6-8.5); Neutrophils Absolute Auto 3.8 K/mm3 (1.3-6.7); Platelet Count Result 327 k/mm3 (150-375); Red Blood Count 3.21 M/mm3 (4.2-5.4); Red Cell Distribution Width 20.6 % (11.5-14.5); White Blood Count 4.6 K/mm3 (4.5-10.0)
[2021-01-04 09:07] LABS: Anion Gap 4 mmol/L (8-16); Blood Urea Nitrogen 41 mg/dL (7-17); Carbon Dioxide 28 mmol/L (22-30); Chloride 102 mmol/L (98-107); Estimated Glomerular Filt Rate 55; Glucose 133 mg/dL (65-105); Potassium 4.1 mmol/L (3.4-5.0); Sodium 134 mmol/L (137-145)
--- NOTE | 2021-01-04 11:13 | PM.DS ---
DS: Admitting Diagnosis Admitting Diagnosis Admitting Diagnosis: (1) Acute exacerbation of chronic obstructive airways disease: (2) Community acquired pneumonia: (3) A-fib: (4) HTN (hypertension): DS: Summary Hospital Course Hospital Course: SOB Time Spent with Patient Time attestation: Total time spent providing and/or coordinating discharge services: Haritha Velez is a 65 year old female with PMHx significant for HTN, COPD, Asthma, A. fib on anticoagulation, T2DM. Patient presented to ED due to worsening sob, productive cough, for the last week or so, denies smoking, also states that had pain in her epigastrium but no nausea or vomiting, no fevers, no rigors, no chills, no loss of sense of smell or taste, no loss of appetite, no leg swelling. Preliminary work up was significant for lung infiltrates on both lungs. She was treated for pneumonia and COPD exacerbation and was ruled out for Covid 19 Patient had one episode of respiratory distress and was transferred to ICU for closer monitoring she then was transferred out to [facility]. Patient was discharged home and will follow up in the outpatient setting. No consults were obtained. No procedures were done Patient discharged with tapering course of oral steroids and to complete antibiotic course. Exam Const: General: comfortable, no acute distress, alert and awake Nutritional Appearance: average body habitus Orientation/consciousness: patient oriented x3 HENMT: Head: normal to inspection, normocephalic and atraumatic Ears: hearing grossly normal bilaterally General nose exam: Normal external nose present Face and sinus: normal facial exam Eyes: General: appearance normal, both eyes and all related structures Pupils: Equal, round and reactive pupils present EOM: EOMs intact bilaterally Neck: Neck: no lymphadenopathy and no JVD Resp: Effort & Inspection: normal respiratory effort Auscultation: clear to auscultation bilaterally and diminished lung sounds Cardio: Rate: regular rate Rhythm: regular rhythm GI: GI Palp: Yes Soft to palpation and Yes No hepatosplenomegaly present Skin: Rashes: no rashes Wounds: no wounds Neuro: General: patient oriented x3 and CN's II-XI intact bilaterally Cranial nerves: Yes CN's II-XII intact bilaterally and Yes Equal, round and reactive pupils present Cognition (Neuro): normal cognition Speech: normal speech Motor exam (neuro): 5/5 motor strength present throughout DS: Data Data Completed and Pending Labs on day of discharge: Labs from last 24 hours 01/04/21 01/04/21 01/04/21 08:15 08:15 06:21 WBC 4.6 RBC 3.21 L Hgb 7.9 L Hct 25.8 L MCV 80.4 MCH 24.6 L D MCHC 30.6 L RDW 20.6 H Plt Count 327 MPV 10.1 Immature Gran % (Auto) 1.3 H Neut % (Auto) 83.0 H Lymph % (Auto) 9.8 L [place] % (Auto) 5.9 Eos % (Auto) 0.0 Baso % (Auto) 0.0 L Lymph # (Auto) 0.45 L [place] # (Auto) 0.3 Eos # (Auto) 0.0 Baso # (Auto) 0.0 Abs Immat Gran (auto) 0.06 H Absolute Neuts (auto) 3.8 Absolute Nucleated RBC 0.0 Nucleated RBC % 0.0 PT 27.1 H INR 2.4 Sodium 134 L Potassium 4.1 Chloride 102 Carbon Dioxide 28 Anion Gap 4 L BUN 41 H D Creatinine 1.00 Estim Creat Clear Calc Not Reportable Estimated GFR 55 L Glucose 133 H Calcium 9.0 EXAMINATION: XR chest 1V portable EXAM DATE: 12/30/2020 21:17 INDICATION: Shortness of breath. Anxiety. TECHNIQUE: Portable AP frontal chest x-ray was obtained. Comparison is made to prior examination from 09/07/2018. FINDINGS: There is moderate amount of bilateral ill-defined airspace disease, recommend considering COVID 19 pneumonia. Edema also possible. No pneumothorax or pleural effusion. Cardiomediastinal silhouette is normal. Left humeral hardware. IMPRESSION: Moderate amount of bilateral ill-defined acute airspace disease, possibly COVID pneumonia. [place] [id number]
== END 2021-01-04 14:25 | disposition home health service (06) | DRG 194 ==
LOC: ANHED 23:36 → ANH3MEDSUR 12-31 01:58 → ANHIMU 12-31 04:58 → ANHCPC 12-31 22:51 → ANHICU 01-01 11:51 → ANH3MEDSUR 01-02 01:59 → ANHCPC 01-08 15:22 → ANHICU 01-08 15:22 → ANHIMU 01-08 15:22
PROVIDERS: Family Medicine; Admitting Provider Internal Medicine; Emergency Provider Emergency Medicine; PCP Internal Medicine; Visit Provider Internal Medicine
DX: J18.9 Pneumonia, unspecified organism (principal); J44.1 Chronic obstructive pulmonary disease with (acute) exacerbation; J44.0 Chronic obstructive pulmonary disease with (acute) lower respiratory infection; Z20.822 Contact with and (suspected) exposure to COVID-19; I48.91 Unspecified atrial fibrillation; I10 Essential (primary) hypertension; E11.9 Type 2 diabetes mellitus without complications; Z79.01 Long term (current) use of anticoagulants; Z85.3 Personal history of malignant neoplasm of breast
CPT/HCPCS: 36415; 36430; 36600; 71045; 71275; 80048; 82803; 82805; 83880; 84484; 85014; 85018; 85025; 85380; 85610; 86850; 86900; 86901; 86923; 93005; 93970; 94640; 96365; 96367; 96375; 96376; 97110; 97162; 97165; 97535; 99285; A9270; C9803; G0378; J0610; J0696; J1100; J1815; J1940; J2060; J2250; J2930; J7050; P9016; Q9967; U0003; U0005